=== PATIENT | female | born 1950 | race Caucasian/White ===

== ENCOUNTER 2022-06-27 19:26 | Inpatient (IN) | payer MEDICAID ==
[~2022-06-27] VITALS: Ht 160 cm; Wt 60.0 kg
[2022-06-27] MEDS ORDERED: LEVO-108 PO (19:54)
[2022-06-27] MEDS ORDERED: AMLO-257 PO (19:54)
[2022-06-27] MEDS ORDERED: ATOR10TA PO (19:55)
[2022-06-27 21:40] LABS: BASOPHILS % (AUTO) 0.3 % (0.0-2.0); EOSINOPHILS % (AUTO) 0.8 % (1.0-6.0); HEMATOCRIT 39.3 % (36-46); HEMOGLOBIN 13.3 g/dL (12.0-16.0); LYMPHOCYTES # (AUTO) 1.5 K/uL (1.0-4.8); MEAN CORPUSCULAR HGB CONC 33.8 G/dL (31.0-37.0); MEAN CORPUSCULAR VOLUME 92 fL (80-100); MONOCYTES # (AUTO) 0.5 K/uL (0.1-1.0); MONOCYTES % (AUTO) 8.3 % (2.0-9.0); NEUTROPHILS # (AUTO) 4.4 K/uL (1.8-7.7); NEUTROPHILS % (AUTO) 67.6 % (40.0-70.0); PLATELET COUNT (AUTO) 232 K/uL (150-450); RED BLOOD CELL COUNT(AUTO) 4.27 MIL/uL (4.00-5.20); RED CELL DISTRIBUTION WIDTH 14.2 % (11.5-14.5)
[2022-06-27 21:48] LABS: CALCIUM, TOTAL 9.2 mg/dL (8.8-10.5); CREATININE 0.95 mg/dL (0.60-1.30); POTASSIUM 3.7 mmol/L (3.5-5.1)
[2022-06-27 21:53] LABS: PROTHROMBIN TIME 10.9 SEC (9.4-11.6)
[2022-06-27 21:54] LABS: BILIRUBIN,TOTAL 0.9 mg/dL (0.1-1.0); TOTAL PROTEIN, SERUM 8.6 g/dL (6.4-8.2)
[2022-06-28] MEDS ORDERED: PIPERACILLIN/TAZO 3.375 GM/D5W 50 ML IV ONE ×2 (00:30→09:00)
[2022-06-28] MEDS ORDERED: MORPHINE SULFATE 2 MG/ML SYRINGE IVP PRN ×2 (04:30→11:30)
[2022-06-28] MEDS ORDERED: ONDANSETRON HCL 4 MG/2 ML VIAL IVP PRN ×2 (04:30→11:30)
[2022-06-28] MEDS ORDERED: NALOXONE HCL 1 MG/ML 2 ML SYRINGE IVP PRN (04:45)
[2022-06-28] MEDS: LEVOTHYROXINE SODIUM 50 MCG TABLET PO SCH (06:56)
[2022-06-28] MEDS: RINGERS SOLUTION,LACTATED 1,000 ML IV SCH ×2 (06:57→14:19)
[2022-06-28] MEDS: AmLODIPine BESYLATE 5 MG TABLET PO SCH (08:39)
[2022-06-28 09:02] LABS: THYROID STIMULATING HORMONE 96.6 uIU/mL (0.36-3.74)
[2022-06-28] MEDS ORDERED: BUPIVACAINE 0.25%/EPI 1:200,000/PF 10 ML VIAL ONE ×2 (10:11)
[2022-06-28] MEDS ORDERED: IOHEXOL 240 MG/ML 20 ML VIAL ONE ×2 (10:11)
[2022-06-28] MEDS ORDERED: LIDOCAINE/PF 1% 30 ML VIAL ONE (10:11)
[2022-06-28] MEDS ORDERED: LIDOCAINE 2%/EPI 1:200,000/PF 20 ML VIAL ONE (10:17)
[2022-06-28] MEDS ORDERED: BUPIVACAINE HCL/PF 0.5% 30 ML VIAL ONE (10:17)
[2022-06-28] MEDS ORDERED: SODIUM CHLORIDE 0.9% 0 ML ONE (10:22)
[2022-06-28] MEDS ORDERED: HYDROCODONE/ACETAMINOPHEN 5-325 MG TABLET PO PRN (11:30)
[2022-06-28] MEDS ORDERED: MEPERIDINE-PF 25 MG/ML VIAL IVP PRN (11:30)
[2022-06-28] MEDS ORDERED: FentaNYL CITRATE PF 100 MCG/2 ML VIAL IVP PRN (11:30)
[2022-06-28] MEDS ORDERED: HYDROmorphone HCL 2 MG/ML SYRINGE IVP PRN (11:30)
[2022-06-28] MEDS ORDERED: ACETAMINOPHEN 500 MG TABLET PO PRN (11:30)
[2022-06-28] MEDS ORDERED: IBUPROFEN 800 MG TABLET PO PRN (11:30)
[2022-06-28] MEDS ORDERED: LIDOCAINE/PF 2% 5 ML VIAL IM ONE (12:00)
[2022-06-28] MEDS ORDERED: DEXAMETHASONE SOD PHOS 4 MG/ML VIAL IVP ONE (12:00)
[2022-06-28] MEDS ORDERED: ONDANSETRON HCL 4 MG/2 ML VIAL IVP ONE (12:00)
[2022-06-28] MEDS ORDERED: FentaNYL CITRATE PF 100 MCG/2 ML VIAL IVP ONE (12:00)
[2022-06-28] MEDS ORDERED: ROCURONIUM BROMIDE 10 MG/ML 5 ML VIAL IVP ONE (12:00)
[2022-06-28] MEDS ORDERED: 0.9% SODIUM CHLORIDE 10 ML VIAL IVP ONE (12:00)
[2022-06-28] MEDS ORDERED: KETOROLAC TROMETHAMINE 60 MG/2 ML VIAL IM ONE (12:00)
[2022-06-28] MEDS ORDERED: MIDAZOLAM HCL 2 MG/2 ML VIAL IVP ONE (12:00)
[2022-06-28] MEDS ORDERED: PROPOFOL 1% 20 ML VIAL IVP ONE (12:00)
[2022-06-28] MEDS ORDERED: EPHEDrine SULFATE 50 MG/ML VIAL IM ONE (12:00)
[2022-06-28 12:14] VITALS: BP 140/73
[2022-06-28] MEDS ORDERED: SODIUM CHLORIDE 0.9% 500 ML IV ONE (15:47)
[2022-06-28 15:53] VITALS: BP 139/63
[2022-06-28] MEDS: PIPERACILLIN/TAZO 3.375 GM/D5W 50 ML IV SCH ×2 (16:01→20:49)
[2022-06-28] MEDS: OXYGEN THERAPY IH SCH (20:47)
[2022-06-28 20:50] VITALS: BP 117/62
[2022-06-28] MEDS ORDERED: ATORVASTATIN CALCIUM 10 MG TABLET PO SCH (21:00)
[2022-06-29 01:20] VITALS: BP 128/72
[2022-06-29] MEDS: RINGERS SOLUTION,LACTATED 1,000 ML IV SCH ×2 (01:44→10:30)
[2022-06-29] MEDS: PIPERACILLIN/TAZO 3.375 GM/D5W 50 ML IV SCH ×2 (03:51→09:44)
[2022-06-29 04:45] VITALS: BP 138/69
[2022-06-29] MEDS: LEVOTHYROXINE SODIUM 50 MCG TABLET PO SCH (05:49)
[2022-06-29] MEDS ORDERED: HEPARIN SODIUM,PORCINE 5,000 UNITS/ML VIAL SQ SCH (08:00)
[2022-06-29] MEDS: OXYGEN THERAPY IH SCH (08:00)
[2022-06-29 08:04] VITALS: BP 122/60
[2022-06-29] MEDS: AmLODIPine BESYLATE 5 MG TABLET PO SCH (08:32)
[2022-06-29 11:14] VITALS: BP 131/61
== END 2022-06-29 12:30 | disposition home or self-care (01) | DRG 263 ==
LOC: EMS 19:26 → AHU 06-28 10:17 → 5S 06-28 13:04
PROVIDERS: ADMIT Internal Medicine; ATTEND Internal Medicine
PROC: 0FT44ZZ Resection of Gallbladder, Percutaneous Endoscopic Approach (ICD-10-PCS; principal; 2022-06-28 10:25)
DX: K80.66 Calculus of gallbladder and bile duct with acute and chronic cholecystitis without obstruction (principal); E03.9 Hypothyroidism, unspecified; E78.5 Hyperlipidemia, unspecified; I10 Essential (primary) hypertension; I44.7 Left bundle-branch block, unspecified; Z79.899 Other long term (current) drug therapy
CPT/HCPCS: 71045; 76705; 80053; 83690; 84443; 84484; 85025; 85610; 85730; 93005; 93306; 99285; J1100; J1644; J1885; J2250; J2405; J2543; J2704; J3010; J3490; J7030; J7040; J7120; Q9966; 36415-L1; 36415-TC